=== PATIENT | female | born 1960 | race Hispanic/Latino ===

== ENCOUNTER 2017-11-17 08:18 | Outpatient (CLI) | payer OTHER | END 2017-11-17 08:19 | disposition home or self-care (01) | LOC: BICULT 08:18 | PROVIDERS: ATTEND Family Medicine | DX: R79.89 Other specified abnormal findings of blood chemistry (principal); K76.0 Fatty (change of) liver, not elsewhere classified; Z90.49 Acquired absence of other specified parts of digestive tract | CPT/HCPCS: 76700 ==

== ENCOUNTER 2017-12-12 07:46 | Outpatient (CLI) | payer OTHER ==
[2017-12-12] MEDS ORDERED: Iopamidol 370 76% 100 ML VIAL ONE (12:56)
== END 2017-12-12 07:47 | disposition home or self-care (01) ==
LOC: BICCT 07:46
PROVIDERS: ATTEND Family Medicine
DX: K76.89 Other specified diseases of liver (principal)
CPT/HCPCS: 74170

== ENCOUNTER 2017-12-21 08:21 | Outpatient (CLI) | payer OTHER ==
--- NOTE | 2017-12-21 10:16 | MMO ---
BILATERAL DIGITAL SCREENING MAMMOGRAMS: History: 57-year-old female presents for digital screening mammography. Comparison: 12-19-15 This study is interpreted with the assistance of computer aided detection. FINDINGS: The breasts are heterogeneously dense which can lower the sensitivity of mammography. There are some stable typically benign calcifications as well as some small stable parenchymal densities asymmetries bilaterally. IMPRESSION: BIRADS category 2 - benign findings. Continue routine screening. POS: [facility]
== END 2017-12-21 08:22 | disposition home or self-care (01) ==
LOC: SCSMAMMO 08:21
PROVIDERS: ATTEND Family Medicine
DX: Z12.31 Encounter for screening mammogram for malignant neoplasm of breast (principal)
CPT/HCPCS: 77067